=== PATIENT | female | born 1985 | race Caucasian/White ===

== ENCOUNTER 2024-08-27 04:05 | Emergency (ER) | payer OTHER ==
[~2024-08-27] VITALS: Ht 165.1 cm; Wt 72.6 kg
[2024-08-27] MEDS ORDERED: methylPREDNISolone SOD SUCC 125 MG/2 ML VL IV ONE (04:15)
--- NOTE | 2024-08-27 04:16 | ECG ---
[facility] Test Date: 2024-08-27 Test Time: 04:10:26 Pat Name: ANAND PEACE Department: ED Room: Gender: F Manufacturer'S Representative: : 1985 Requested By: ISMA MORALES Order Number: [id number] Reading MD: Amador Chakraborty Measurements Intervals [place] Rate: 64 P: -27 TX: 129 QRS: -23 QRSD: 86 T: 67 QT: 394 QTc: 407 Interpretive Statements Sinus rhythm Borderline left axis deviation Electronically Signed On 08-27-2024 17:02:52 PDT by Amador Chakraborty Please click the below link to view image of tracing.
--- NOTE | 2024-08-27 04:22 | ED.PDOC ---
SOB-HPI HPI Comments 38 year old female presents to the ED via EMS with a chief complaint of asthma exacerbation onset 1 day. Patient states she has a PMHx of asthma, ran out of Albuterol inhaler a few months ago. For the past day, patient has been experiencing shortness of breath with wheezing, noticed symptoms worsen, called 911. Patient was given breathing treatment in route, upon ED arrival patient states symptoms have improved. Denies chest pain, sore throat, nasal c ongestion, fever, chills, nausea, vomiting, diarrhea, abdominal pain. No other associated symptoms, modifiers, recent injuries or sick contacts present at this time. Chief Complaint: Asthma Time Seen by MD: 04:10 Reviewed notes: Medications, Allergies Information Source: Patient, Emergency Med Personnel Mode of Arrival: EMS Severity: Moderate Timing: Days Duration: Since onset Context: At Rest PE Risk Factors: None History of: Asthma Prehospital treatment: Breathing Tx Modifying Factors: Nothing Associated Signs and Symptoms: Wheeze Past Medical History PAST MEDICAL HISTORY: Asthma Surgical History: Denies all surgeries WATER POLLUTION CONTROL TECHNICIAN History: No Pertinent WATER POLLUTION CONTROL TECHNICIAN History Family History Family History: Reviewed,noncontributory to illness, No family hx of Cancer, No family hx of DM, No family hx of Heart [place], No family hx of HTN, No family hx ofKidney [place], No family hx of Liver [place], No family hx of Lung [place], No family hx of Stroke Social History Smoker: Non-Smoker Alcohol: Denies ETOH Use Drugs: Denies Drug Use Lives In: Homeless Constitutional: denies: chills, diaphoresis, fatigue, fever, malaise, sweats, weakness, others EENTM: denies: blurred vision, double vision, ear bleeding, ear discharge, ear drainage, ear pain, ear ringing, eye pain, eye redness, hearing loss, mouth pain, mouth swelling, nasal discharge, nose bleeding, nose congestion, nose pain, photophobia, tearing, throat pain, throat swelling, voice changes, others Respiratory: reports: shortness of breath, wheezing; denies: cough, hemoptysis, orthopnea, SOB at rest, SOB with excertion, stridor, others Cardiovascular: denies: chest pain, dizzy spells, diaphoresis, Dyspnea on exertion, edema, irregular heart beat, left arm pain, lightheadedness, palpitations, PND, syncope, others Gastrointestinal: denies: abdomen distended, abdominal pain, blood streaked bowels, constipated, diarrhea, dysphagia, difficulty swallowing, hematemesis, melena, nausea, poor appetite, poor fluid intake, rectal bleeding, rectal pain, vomiting, others Genitourinary: denies: abnormal vagina bleeding, burning, dyspareunia, dysuria, flank pain, frequency, hematuria, incontinence, pain, , vagina discharge, urgency, others Neurological: denies: dizziness, fainting, headache, left sided numbness, left sided weakness, numbness, paresthesia, pre-existing deficit, right sided numbness, right sided weakness, seizure, speech problems, tingling, tremors, weakness, others Musculoskeletal: denies: back pain, gout, joint pain, joint swelling, muscle pain, muscle stiffness, neck pain, others Integumetry: denies: bruises, change in color, change in hair/nails, dryness, laceration, lesions, lumps, rash, wounds, others Allergic/Immunocompromised: denies: Difficulty Healing, Frequent Infections, Hives, Itching, others Hematologic/Lymphatic: denies: anemia, blood clots, easy bleeding, easy bruising, swollen glands, others Endocrine: denies: excessive hunger, excessive sweating, excessive thirst, excessive urination, flushing, intolerance to cold, intolerance to heat, une xplained weight gain, unexplained weight loss, others Psychiatric: denies: anxiety, bipolar disorder, depression, hopeless, panic disorder, schizophrenia, sleepless, suicidal, others All Other Systems: Reviewed and Negative Physical Exam General Appearance: No Apparent Distress, Normal HEENT: Normal ENT Inspection, Pharynx Normal, TMs Normal Neck: Full Range of Motion, Non-Tender, Normal, Normal Inspection Respiratory: Chest Non-Tender, Expiration (wheezing), Wheezing (expiratory) Cardiovascular: No Edema, No JVD, No Murmur, No Gallop, Normal Peripheral Pulses, Regular Rate/Rhythm Breast Exam: Deferred Gastrointestinal: No Organomegaly, Non Tender, No Pulsatile Mass, Normal Bowel Sounds, Soft Genitalia: Deferred Pelvic: Deferred Rectal: Deferred Extremities: No calf tenderness, Normal capillary refill, Normal inspection, Normal range of motion, Non-tender, No pedal edema Musculoskeletal : Apperance: Normal Neurologic: Alert, director of retail operations II-XII nml as Tested, No Motor Deficits, Normal Affect, Normal Mood, No Sensory Deficits Cerebellar Function: Normal Reflexes: Normal Skin: Dry, Normal Color, Warm Lymphatic: No Adenopathy Was a procedure done? Was a procedure done?: No Differential Dx Differential Diagnosis: Asthma, COPD X-Ray, Labs, Meds, VS Vital Signs Date Time Temp Pulse Resp B/P (MAP) Pulse Ox O2 Delivery O2 Flow Rate FiO2 08/27/24 04:46 98.9 60 16 138/81 (100) 100 98.9 08/27/24 04:46 60 16 100 Room Air 08/27/24 04:20 20 96 Room Air* 0 21 21 08/27/24 04:14 98.9 60 16 138/81 (100) 100 98.9 08/27/24 04:10 64 Current Medications Medications (Trade) Dose Ordered Sig/Umm Route Start Time Stop Time Status Last Admin Albuterol (Ventolin Medneb) 5 mg ONCE ONCE NEB 08/27/24 04:15 08/27/24 04:16 DC 08/27/24 04:23 Ipratropium Warriormine (Atrovent Medneb) 0.5 mg ONCE ONCE NEB 08/27/24 04:15 08/27/24 04:16 DC 08/27/24 04:23 Methylprednisolone Sodium Succinate (Solu Medrol) 125 mg ONCE ONCE IM 08/27/24 04:30 08/27/24 04:31 DC 08/27/24 04:42 Time of 1ST Reevaluation: 04:40 Reevaluation 1ST: Unchanged Patient Education/Counseling: Diagnosis, Treatment, Prognosis Family Education/Counseling: No Family Present SEPSIS Sepsis Screen Vital Signs Date Time Temp Pulse Resp B/P (MAP) Pulse Ox O2 Delivery O2 Flow Rate FiO2 08/27/24 04:46 98.9 60 16 138/81 (100) 100 98.9 08/27/24 04:46 60 16 100 Room Air 08/27/24 04:20 20 96 Room Air* 0 21 21 08/27/24 04:14 98.9 60 16 138/81 (100) 100 98.9 08/27/24 04:10 64 Medications Medications Dose Ordered Sig/Umm Route Start Time Stop Time Status Last Admin Dose Admin Albuterol 5 mg ONCE ONCE NEB 08/27/24 04:15 08/27/24 04:16 DC 08/27/24 04:23 Ipratropium Warriormine 0.5 mg ONCE ONCE NEB 08/27/24 04:15 08/27/24 04:16 DC 08/27/24 04:23 Methylprednisolone Sodium Succinate 125 mg ONCE ONCE IM 08/27/24 04:30 08/27/24 04:31 DC 08/27/24 04:42 Departure 1 Departure Time of Disposition: 05:48 (Patient reports feeling better. She has clear lungs. We will discharge patient home with outpatient follow up) Impression: Primary Impression: Acute asthma exacerbation Qualified Codes: J45.21 - Mild intermittent asthma with (acute) exacerbation Disposition: HOME / SELF CARE / HOMELESS Condition: Stable Additional Instructions: You likely had an asthma exacerbation. You should use your inhaler as directed. You were prescribed steroids. Please take as directed. It is important to follow up with the regular doctor within 1 week. If your symptoms worsen or you have any other concerns please return to the emergency room. e-Prescriptions Prednisone (Prednisone) 20 Mg Tab 40 MG PO DAILY for 5 Days, #10 MG Prov: CHAVEZ HERNANDEZ MD 08/27/24 Albuterol Sulfate (VENTOLIN MDI) 90 Mcg Ih 90 MCG IN Q4HP PRN for 7 Days, #1 INH Prov: CHAVEZ HERNANDEZ MD 08/27/24 Discharged With: Self Critical Care Note Critical Care Time?: No Stability Stability form required: No Heart Score Heart Score: Heart Score Response (Comments) Value History N/A 0 EKG N/A 0 Age N/A 0 Risk Factors N/A 0 Troponin N/A 0 Total 0 I personally scribed for CHAVEZ HERNANDEZ MD ([email or web address]) on 08/27/24 at 04:22. Electronically submitted by Breann Rivera ([email or web address]). CHAVEZ HERNANDEZ MD Aug 27, 2024 04:22
[2024-08-27] MEDS: IPRATROPIUM BROM 0.5 MG/2.5ML INH SOL NEB ONE (04:23)
[2024-08-27] MEDS: ALBUTEROL SULF 2.5 MG/0.5ML(0.5%) NEB SOLN NEB ONE (04:23)
[2024-08-27] MEDS: methylPREDNISolone SOD SUCC 125 MG/2 ML VL IM ONE (04:42)
[2024-08-27 04:46] VITALS: BP 138/81; PULSE 60; RESP 16; TEMP 98.9; O2SAT 100
[2024-08-27] MEDS ORDERED: ALBUAER3 IN (05:50)
[2024-08-27] MEDS ORDERED: PRED20TA2 PO (05:50)
== END 2024-08-27 06:12 | disposition home or self-care (01) ==
LOC: EDBD 04:05 → ER 04:05
DX: J45.901 Unspecified asthma with (acute) exacerbation (principal)
CPT/HCPCS: 93005; 94640; 96372; 99283; J2919